=== PATIENT | male | born 1955 | race Caucasian/White ===

== ENCOUNTER 2016-11-20 16:58 | Emergency (ER) | payer OTHER ==
[~2016-11-20] VITALS: Ht 188 cm; Wt 99.0 kg
[2016-11-20 17:00] VITALS: BP 135/84; PULSE 92; RESP 16; TEMP 98.8; O2SAT 95
[2016-11-20 18:39] VITALS: BP 130/78; PULSE 76; RESP 18; TEMP 97.8; O2SAT 96
--- NOTE | 2016-11-20 18:58 | PD ---
HPI Chief Complaint: Psychiatric Symptoms Time Seen by Provider: 18:53 Travel History International Travel<30 days: No Contact w/Intl Traveler<30days: No Traveled to known affect area: No History of Present Illness HPI 60-year-old male that presents to the ED for evaluation of psychiatric illness. Patient states that he's been feeling depressed and that he has plans to hurt himself but he "is to much of a coward" to do it. Per patient his been feeling depressed secondary to unknown source. Per patient she feels like life is staying and stating that he has been staying the same house and is nonrigid. Patient also complains that he has not had a bowel movement for the past 6 days. He states passing gas. He does state having a history of hemorrhoids and she was told by the affairs that he will eventually require and a colonoscopy to get his rectum checked but he has not done so because of the necessity to put him under. He states that he is concerned that he might have an obstruction or mass effect aggravating his depression. He also states that he is feeling somewhat hard to concentrate which is unusual for him. He denies any headache. No blurry vision or double vision. Per patient she's had workups [place] the [place] recently for blood work which was negative. He did not had the constipation during that time. Per patient he To come out of work early because he wanted to get himself checked. On exam he appears to be very anxious. PFSH Past Medical History Medical History: Denies Significant Hx Social History Alcohol Use: No Tobacco Use: Yes Substance Use: No Allergies-Medications (Allergen,Severity, Reaction): Coded Allergies: No Known Allergies (Unverified , 11/20/16) Reported Meds & Prescriptions Reported Meds & Active Scripts Active Golytely 236 gm (Polyethylene Glycol/Electrolytes) 4,000 Ml Soln 4,000 Ml PO ONCE Miralax Powder (Polyethylene Glycol 3350 Powder) 17 Gm Powd 17 Gm PO DAILY Mix and dissolve one measuring cap-ful (17 grams) in water or juice. Reported Synthroid (Levothyroxine Sodium) 175 Mcg Tab 175 Mcg PO DAILY Review of Systems Except as stated in HPI: all other systems reviewed are Neg Physical Exam Narrative GENERAL: SKIN: Warm and dry. HEAD: Atraumatic. Normocephalic. EYES: Pupils equal and round. No scleral icterus. No injection or drainage. ENT: No nasal bleeding or discharge. Mucous membranes pink and moist. NECK: Trachea midline. No JVD. CARDIOVASCULAR: Regular rate and rhythm. RESPIRATORY: No accessory muscle use. Clear to auscultation. Breath sounds equal bilaterally. GASTROINTESTINAL: Abdomen soft, non-tender, nondistended. Hepatic and splenic margins not palpable. Rectal exam: No hemorrhoids or masses noted. Hemoccult was negative. Rectal exam showed no obvious hemorrhoid or mass, hemocult negative MUSCULOSKELETAL: Extremities without clubbing, cyanosis, or edema. No obvious deformities. Full range of motion of the upper and lower extremities bilaterally. 2+ pulses bilaterally. NEUROLOGICAL: Awake and alert. No obvious cranial nerve deficits. Motor grossly within normal limits. Five out of 5 muscle strength in the arms and legs. Normal speech. PSYCHIATRIC: Appropriate mood and affect; insight and judgment normal. Data Data Last Documented VS Vital Signs Date Time Temp Pulse Resp B/P Pulse Ox O2 Delivery O2 Flow Rate FiO2 11/20/16 18:39 97.8 76 18 130/78 96 Orders Diet Regular Basic (11/20/16 Dinner) Complete Blood Count With Diff (11/20/16 18:25) Comprehensive Metabolic Panel (11/20/16 18:25) Drug Screen, Random Urine (11/20/16 18:25) Alcohol (Ethanol) (11/20/16 18:25) Psych Screen (11/20/16 18:25) Ct Abd/Pel W Iv Contrast(Rout) (11/20/16 ) Ct Brain W/O Iv Contrast(Rout) (11/20/16 ) Iohexol 350 Inj (Omnipaque 350 Inj) (11/20/16 21:09) Labs Laboratory Tests Test 11/20/16 19:25 Sodium Level 143 MEQ/L Potassium Level 4.5 MEQ/L Chloride Level 109 MEQ/L Carbon Dioxide Level 30.7 MEQ/L Anion Gap 3 MEQ/L Blood Urea Nitrogen 18 MG/DL Creatinine 0.94 MG/DL Estimat Glomerular Filtration 82 ML/MIN Rate Random Glucose 88 MG/DL Calcium Level 8.8 MG/DL Total Bilirubin 0.3 MG/DL Aspartate Amino Transf 12 U/L (AST/SGOT) Alanine Aminotransferase 32 U/L (ALT/SGPT) Alkaline Phosphatase 65 U/L Total Protein 7.2 GM/DL Albumin 4.0 GM/DL Urine Opiates Screen NEG Urine Barbiturates Screen NEG Urine Amphetamines Screen NEG Urine Benzodiazepines Screen NEG Urine Cocaine Screen NEG Urine Cannabinoids Screen NEG Ethyl Alcohol Level LESS THAN 3 MG/DL MDM Medical Decision Making Medical Screen Exam Complete: Yes Emergency Medical Condition: Yes Medical Record Reviewed: Yes Interpretation(s) BMP Diagram 11/20/16 19:25 tox negative alcohol negative Last Impressions Head CT 11/20/16 0000 Signed Impressions: Service Date/Time: November 21:02 - CONCLUSION: Negative noncontrast head CT. Silver Eden MD Abdomen/Pelvis CT 11/20/16 0000 Signed Impressions: Service Date/Time: November 21:08 - CONCLUSION: 1. No acute abnormality demonstrated. 2. There is an indeterminate low density lesion of the liver, in the absence of known malignancy statistically is most likely benign. If attempted full characterization is desired clinically, an outpatient MRI of the abdomen with and without contrast can be done. 3. Bilateral peripelvic renal cysts. No hydronephrosis. Silver Eden MD Differential Diagnosis Constipation versus obstruction versus acute abdomen versus hemorrhoids versus depression versus suicidal ideation versus psychiatric Narrative Course 60-year-old male that presents to the ED for evaluation of possible constipation and psych history. Patient was properly examined and was found to have signs and symptoms which appear to be consistent with likely psychiatric illness. Patient also appears to have signs and symptoms consistent with constipation. Cannot rule out obstruction. I do not see any sign of acute disease by the recommend labs and imaging to rule out surgical emergency. He is agreeable with plan. Labs and imaging ordered. Labs and imaging showed no sign of acute disease other than a possible lesion to the liver of unclear importance. Recommendation is for nonemergent MRI. No sign of acute emergency. My recommendation at this time is for medical clearance for psychiatric evaluation. Patient was medically cleared. Okay to be seen by psych. Mental health screening was discussed with the patient. [facility] Point of Care Internal Pos. & Neg. Controls: Passed Fecal Specimen Occult Blood: Negative Diagnosis Primary Impression: Suicidal ideation Additional Impression: Constipation Qualified Code: K59.00 - Constipation, unspecified constipation type Patient Instructions: General Instructions Additional Instructions: CT of the abdomen did not show any sign of obstruction bleeding to have a very slight lesion that appears to be benign on your liver. [facility] evaluation and recheck of lesion on liver. Take miralax every day and drink plenty of fluids. Take Golytely only if severely constipated and miralax not working at all. See ED if worst. Med/Other Pt SpecificInfo: Prescription(s) given Scripts Peg-Electrolytes (Golytely 236 gm)4,000 Ml Soln4,000 Ml PO ONCE #1 CONTAINER Ref 0 Prov:Liset Johnson MD 11/20/16 Polyethylene Glycol 3350 Powder (Miralax Powder)17 Gm Powd17 Gm PO DAILY #1 BOTTLE Ref 0 Mix and dissolve one measuring cap-ful (17 grams) in water or juice. Prov:Liset Johnson MD 11/20/16 Disposition: 01 DISCHARGE HOME Condition: Stable Marvin Purcell Nov 20, 2016 18:57
[2016-11-20] MEDS ORDERED: SYNT175T PO (20:02)
[2016-11-20 20:08] LABS: AMPHETAMINE, URINE NEG (NEG); BARBITURATES, URINE NEG (NEG); COCAINE, URINE NEG (NEG)
[2016-11-20 20:44] LABS: ANION GAP 3 MEQ/L (5-15)
[2016-11-20 20:47] LABS: ALKALINE PHOSPHATASE 65 U/L (45-117); ALT (GPT) 32 U/L (12-78); AST (GOT) 12 U/L (15-37); BICARBONATE 30.7 MEQ/L (21.0-32.0); BLOOD UREA NITROGEN 18 MG/DL (7-18); CHLORIDE 109 MEQ/L (98-107); GLOMERULAR FILTRATION RATE 82 ML/MIN (>89); POTASSIUM 4.5 MEQ/L (3.5-5.1); SODIUM (NA) 143 MEQ/L (136-145); TOTAL BILIRUBIN ADULT 0.3 MG/DL (0.2-1.0)
[2016-11-20] MEDS ORDERED: IOHEXOL 350 MG/ML 10 ML VIAL (for RAD DIAG) IV ONE (21:09)
--- NOTE | 2016-11-20 21:17 | RADRPT ---
EXAM DATE/TIME: 11/20/2016 21:02 [facility] COMPARISON: No previous studies available for comparison. INDICATIONS : Blurred vision. RADIATION DOSE: 62.00 CTDIvol (mGy) MEDICAL HISTORY : Hypertension. Thyroid cancer. SURGICAL HISTORY : Thyroidectomy. ENCOUNTER: Initial ACUITY: 1 day PAIN SCALE: 0/10 LOCATION: cranial TECHNIQUE: Multiple contiguous axial images were obtained of the head. Using automated exposure control and adj ustment of the mA and/or kV according to patient size, radiation dose was kept as low as reasonably a chievable to obtain optimal diagnostic quality images. FINDINGS: CEREBRUM: The ventricles are normal for age. No evidence of midline shift, mass lesion, hemorrhage or acute in farction. No extra-axial fluid collections are seen. POSTERIOR FOSSA: The cerebellum and brainstem are intact. The 4th ventricle is midline. The cerebellopontine angle i s unremarkable. EXTRACRANIAL: The visualized portion of the orbits is intact. SKULL: The calvaria is intact. No evidence of skull fracture. CONCLUSION: Negative noncontrast head CT. Silver Eden MD on November 20, 2016 at 21:15 Board Certified Radiologist. This report was verified electronically.
--- NOTE | 2016-11-20 21:34 | RADRPT ---
EXAM DATE/TIME: 11/20/2016 21:08 [facility] COMPARISON: No previous studies available for comparison. INDICATIONS : Constipation with abdominal distension. IV CONTRAST: 97 cc Omnipaque 350 (iohexol) IV ORAL CONTRAST: No oral contrast ingested. RADIATION DOSE: 11.25 CTDIvol (mGy) MEDICAL HISTORY : Hypertension. Thyroid cancer. SURGICAL HISTORY : Thyroidectomy. ENCOUNTER: Initial ACUITY: 2 weeks PAIN SCALE: 5/10 LOCATION: Abdomen/pelvis TECHNIQUE: Volumetric scanning of the abdomen and pelvis was performed. Using automated exposure control and ad justment of the mA and/or kV according to patient size, radiation dose was kept as low as reasonably achievable to obtain optimal diagnostic quality images. FINDINGS: LOWER LUNGS: The visualized lower lungs are clear. LIVER: 2.7 cm low attenuation lesion seen posterior segment of the right hepatic lobe. SPLEEN: Normal size without lesion. PANCREAS: Within normal limits. KIDNEYS: There are bilateral benign-appearing renal cysts that measure up to 1 cm on the right and up to 3 cm on the left. Most of the cysts are peripelvic. No hydronephrosis demonstrated. ADRENAL GLANDS: Within normal limits. VASCULAR: There is no aortic aneurysm. BOWEL/MESENTERY: No obstruction or acute inflammatory changes. No free fluid demonstrated. ABDOMINAL WALL: Within normal limits. RETROPERITONEUM: There is no lymphadenopathy. BLADDER: No wall thickening or mass. REPRODUCTIVE: Within normal limits. INGUINAL: There is no lymphadenopathy or hernia. MUSCULOSKELETAL: No acute bony abnormality demonstrated. There are degenerative changes of the lower lumbar spine. CONCLUSION: 1. No acute abnormality demonstrated. 2. There is an indeterminate low density lesion of the liver, in the absence of known malignancy stat istically is most likely benign. If attempted full characterization is desired clinically, an outpati ent MRI of the abdomen with and without contrast can be done. 3. Bilateral peripelvic renal cysts. No hydronephrosis. Silver Eden MD on November 20, 2016 at 21:28 Board Certified Radiologist. This report was verified electronically.
[2016-11-20] MEDS ORDERED: MIRA33504 PO (21:42)
[2016-11-20] MEDS ORDERED: COLY4000S PO (21:42)
== END 2016-11-21 00:15 | disposition home or self-care (01) ==
LOC: NEPJ 16:58 → NEPA 11-21 00:15
DX: R45.851 Suicidal ideations (principal); K59.00 Constipation, unspecified; K76.9 Liver disease, unspecified; I10 Essential (primary) hypertension; N28.1 Cyst of kidney, acquired; Z72.0 Tobacco use
CPT/HCPCS: 70450; 74177; 80053; 80307; 80320; 99284; Q9967

== ENCOUNTER 2017-04-21 14:56 | Inpatient (IN) | payer OTHER ==
[~2017-04-21] VITALS: Ht 188 cm; Wt 96.1 kg
[~2017-04-21 14:56] MED LIST: COLY4000S PO; MIRA33504 PO; SYNT175T PO
--- NOTE | 2017-04-21 16:02 | PD ---
HPI Chief Complaint: psychiatric symptoms Time Seen by Provider: 16:00 Travel History International Travel<30 days: No Contact w/Intl Traveler<30days: No History of Present Illness HPI 61-year-old male presents to the ED under Domingo act from [facility] the [place] for psychiatric evaluation. Per the Domingo act paper work the patient endorses suicidal ideation and plan to use "hunting rifle"that he has at home. The Domingo act paper work states that the is scared to go home as he feels he will not be able to keep himself safe. He states that he feels that no one will able to help him and he is "going to end it so I will not have to endure the future." On presentation the patient endorses making these statements but he DENIES SUICIDAL IDEATION. He also endorses owning a gun. He endorses psychiatric diagnosis of major depressive disorder and anxiety. He denies previous suicide attempts or previous psychiatric hospitalization. He complains of chronic no back pain, no worse today than usual. Denies other somatic complaints. Denies chronic alcohol or illicit drug use. PFSH Past Medical History Diabetes: No Diminished Hearing: No Hypertension: Yes Seizures: No Past Surgical History Other Surgery: Yes (THYROIDECTOMY-CANCER 30 YRS AGO) Social History Alcohol Use: No Tobacco Use: Yes Substance Use: No Allergies-Medications (Allergen,Severity, Reaction): Coded Allergies: No Known Allergies (Unverified , 04/21/17) Reported Meds & Prescriptions Reported Meds & Active Scripts Active Reported Synthroid (Levothyroxine Sodium) 175 Mcg Tab 175 Mcg PO DAILY Review of Systems Except as stated in HPI: all other systems reviewed are Neg Physical Exam Narrative GENERAL: Well-nourished, well-developed white male in no acute distress. PSYCHIATRIC: No delusional thought processes. No hallucinations. Strange affect. SKIN: Focused skin assessment warm/dry. HEAD: Normocephalic. EYES: No scleral icterus. No injection or drainage. NECK: Supple, trachea midline. No JVD or lymphadenopathy. CARDIOVASCULAR: Regular rate and rhythm without murmurs, gallops, or rubs. RESPIRATORY: Breath sounds clear and equal bilaterally. No accessory muscle use. GASTROINTESTINAL: Abdomen soft, non-tender, nondistended. Active bowel sounds. MUSCULOSKELETAL: No cyanosis, or edema. Ambulatory with a normal gait. Moves extremities spontaneously. BACK: Nontender without obvious deformity. No CVA tenderness. Data Data Last Documented VS Vital Signs Date Time Temp Pulse Resp B/P Pulse Ox O2 Delivery O2 Flow Rate FiO2 04/21/17 16:24 99.6 76 16 139/86 98 Room Air Orders Complete Blood Count With Diff (04/21/17 15:57) Comprehensive Metabolic Panel (04/21/17 15:57) Urinalysis - C+S If Indicated (04/21/17 15:57) Psych Screen (04/21/17 15:57) Drug Screen, Random Urine (04/21/17 15:57) Alcohol (Ethanol) (04/21/17 15:57) Diet Heart Healthy (04/21/17 Dinner) Admit Order (Ed Use Only) (04/21/17 17:39) Labs Laboratory Tests Test 04/21/17 16:16 White Blood Count 5.8 TH/MM3 Red Blood Count 5.23 MIL/MM3 Hemoglobin 15.2 GM/DL Hematocrit 45.0 % Mean Corpuscular Volume 85.9 FL Mean Corpuscular Hemoglobin 29.1 PG Mean Corpuscular Hemoglobin 33.9 % Concent Red Cell Distribution Width 13.1 % Platelet Count 198 TH/MM3 Mean Platelet Volume 10.2 FL Neutrophils (%) (Auto) 65.1 % Lymphocytes (%) (Auto) 23.3 % Monocytes (%) (Auto) 10.2 % Eosinophils (%) (Auto) 0.9 % Basophils (%) (Auto) 0.5 % Neutrophils # (Auto) 3.8 TH/MM3 Lymphocytes # (Auto) 1.3 TH/MM3 Monocytes # (Auto) 0.6 TH/MM3 Eosinophils # (Auto) 0.1 TH/MM3 Basophils # (Auto) 0.0 TH/MM3 CBC Comment DIFF FINAL Differential Comment Urine Color YELLOW Urine Turbidity CLEAR Urine pH 5.0 Urine Specific [place] 1.024 Urine Protein NEG mg/dL Urine Glucose (UA) NEG mg/dL Urine Ketones NEG mg/dL Urine Occult Blood NEG Urine Nitrite NEG Urine Bilirubin NEG Urine Urobilinogen LESS THAN 2.0 MG/DL Urine Leukocyte Esterase NEG Urine RBC LESS THAN 1 /hpf Urine WBC 1 /hpf Urine Mucus FEW /lpf Urine Sperm RARE Microscopic Urinalysis Comment CULT NOT INDICATED Sodium Level 144 MEQ/L Potassium Level 4.0 MEQ/L Chloride Level 110 MEQ/L Carbon Dioxide Level 28.3 MEQ/L Anion Gap 6 MEQ/L Blood Urea Nitrogen 16 MG/DL Creatinine 0.83 MG/DL Estimat Glomerular Filtration 94 ML/MIN Rate Random Glucose 90 MG/DL Calcium Level 9.3 MG/DL Total Bilirubin 0.2 MG/DL Aspartate Amino Transf 19 U/L (AST/SGOT) Alanine Aminotransferase 40 U/L (ALT/SGPT) Alkaline Phosphatase 67 U/L Total Protein 7.5 GM/DL Albumin 3.9 GM/DL Urine Opiates Screen NEG Urine Barbiturates Screen NEG Urine Amphetamines Screen NEG Urine Benzodiazepines Screen NEG Urine Cocaine Screen NEG Urine Cannabinoids Screen NEG Ethyl Alcohol Level LESS THAN 3 MG/DL MDM Medical Decision Making Medical Screen Exam Complete: Yes Emergency Medical Condition: Yes Differential Diagnosis Adjustment disorder versus anxiety versus bipolar versus depression versus dementia versus electrolyte disorder versus malingering versus mood disorder versus ODD versus psychosis versus PTSD versus schizophrenia versus schizoaffective disorder versus substance-induced mood disorder versus other Narrative Course 61-year-old male presents to the ED under Domingo act from [facility] [place] for psychiatric evaluation. Per the Domingo act paper work the patient endorses suicidal ideation and plan to use "hunting rifle"that he has at home. The Domingo act paper work states that the is scared to go home as he feels he will not be able to keep himself safe. He states that he feels that no one will able to help him and he is "going to end it so I will not have to endure the future." On presentation the patient endorses making these statements but he DENIES SUICIDAL IDEATION. He also endorses owning a gun. He endorses psychiatric diagnosis of major depressive disorder and anxiety. He denies previous suicide attempts or previous psychiatric hospitalization. He complains of chronic no back pain, no worse today than usual. Denies other somatic complaints. Denies chronic alcohol or illicit drug use. Vitals reviewed. Physical exam unremarkable. No concerning abnormalities of the CBC, CMP, UA. Tox screen negative. Alcohol less than 3. This patient is medically cleared for psychiatric evaluation. Please see psych notes for disposition. Diagnosis Primary Impression: Medical clearance for psychiatric admission Additional Impression: Suicidal ideation Anupama Velasquez Apr 21, 2017 16:01
[2017-04-21 16:24] VITALS: BP 139/86; PULSE 76; RESP 16; TEMP 99.6; O2SAT 98
[2017-04-21 16:41] LABS: AUTOMATED NEUTROPHIL # 3.8 TH/MM3 (1.8-7.7); BASOPHIL % 0.5 % (0.0-2.0); EOSINOPHIL # 0.1 TH/MM3 (0-0.4); EOSINOPHIL % 0.9 % (0.0-4.0); HEMO FLAGS DIFF FINAL; LYMPH % 23.3 % (9.0-44.0); LYMPHOCYTE # 1.3 TH/MM3 (1.0-4.8); MEAN CELL VOLUME 85.9 FL (80.0-100.0); MEAN CORPUSCULAR HEMOGLOBIN 29.1 PG (27.0-34.0); MEAN CORPUSCULAR HGB CONC 33.9 % (32.0-36.0); MONO % 10.2 % (0.0-8.0); NEUT % 65.1 % (16.0-70.0); PLATELET COUNT 198 TH/MM3 (150-450); RED BLOOD COUNT 5.23 MIL/MM3 (4.50-5.90); RED CELL DISTRIBUTION WIDTH 13.1 % (11.6-17.2); WHITE BLOOD COUNT 5.8 TH/MM3 (4.0-11.0)
[2017-04-21 17:01] LABS: ALT (GPT) 40 U/L (12-78); ANION GAP 6 MEQ/L (5-15); AST (GOT) 19 U/L (15-37); BICARBONATE 28.3 MEQ/L (21.0-32.0); BLOOD UREA NITROGEN 16 MG/DL (7-18); CHLORIDE 110 MEQ/L (98-107); GLOMERULAR FILTRATION RATE 94 ML/MIN (>89); SODIUM (NA) 144 MEQ/L (136-145)
[2017-04-21 17:04] LABS: ALKALINE PHOSPHATASE 67 U/L (45-117); TOTAL BILIRUBIN ADULT 0.2 MG/DL (0.2-1.0)
[2017-04-21 17:10] LABS: BLOOD, URINE NEG (NEG); COMMENT (UR) CULT NOT INDICATED; CULTURE IF INDICATED CULT NOT INDICATED; GLUCOSE,URINE NEG (NEG); KETONE, URINE NEG (NEG); MUCUS URINE FEW /lpf (OCC); NITRITE,URINE NEG (NEG); URINE COLOR YELLOW (YELLW/STRAW)
[2017-04-21 17:11] LABS: AMPHETAMINE, URINE NEG (NEG); BARBITURATES, URINE NEG (NEG); COCAINE, URINE NEG (NEG)
[2017-04-21] MEDS ORDERED: LORazepam 1 MG TAB PO PRN (17:45)
[2017-04-21] MEDS ORDERED: MAGNESIUM HYDROXIDE SUSP 30 ML CUP PO PRN (17:45)
[2017-04-21] MEDS ORDERED: ACETAMINOPHEN 325 MG TAB PO PRN (17:45)
[2017-04-21] MEDS ORDERED: LORazepam 2 MG/ML VIAL IM PRN ×2 (17:45)
[2017-04-21] MEDS ORDERED: ALUMINUM/MAGNESIUM/SIMETH 30 ML CUP PO PRN (17:45)
[2017-04-21] MEDS ORDERED: LORazepam 0.5 MG TAB PO PRN (17:45)
--- NOTE | 2017-04-21 17:56 | HHI.HP ---
Provisional Diagnosis Admission Date [place] I. Adjustment disorder with mixed disturbance of emotion and conduct. Certification of Person's Competence To Provide Express and Informed Consent I have personally examined Santana Spears , a person being served at [facility] on, Apr 21, 2017 17:44. Express and informed consent means consent voluntarily given in writing, by a competent person, after sufficient explanation and disclosure of the subject matter involved to enable the person to make a knowing and willful decision without any element of force, fraud, deceit, duress, or other form of constraint or coercion. This person is 18 years of age or older, is not now known to be incompetent to consent to treatment with a guardian advocate, and does not have a health care surrogate or proxy currently making medical treatment decisions. I have found this person to be one of the following: [X] Competent to provide express and informed consent, as defined above, for voluntary admission to this facility and is competent to provide express and informed consent for treatment. He/she has the consistent capacity to make well reasoned, willful, and knowing decisions concerning his or her medical or mental health treatment. The person fully and consistently understands the purpose of the admission for examination/placement and is fully capable of personally exercising all rights assured under [place] [] Incompetent to provide express and informed consent to voluntary admission, and this is incompetent to provide express and informed consent to treatment. The person must be transferred to involuntary status and a petition for a guardian advocate filed with the Circuit Court. [] Refusing to provide express and informed consent to voluntary admission but is competent to provide express and informed consent for treatment. The person must be discharged or transferred to involuntary status. Form shall be completed within 24 hours of a person's arrival at the receiving facility and filed in the clinical record of each person: 1. Admitted on a voluntary basis 2. Permitted to provide express and informed consent to his/her own treatment 3. Allowed to transfer from involuntary to voluntary status 4. Prior to permitting a person to consent to his or her own treatment after having been previously found incompetent to consent to treatment. History of Present Illness Capacity: Has Capacity HPI This is a 61-year-old male who was rock to the emergency department under a Domingo act written by a licensed clinical social secretary at the local [place] clinic. According to the Domingo act, the patient has suicidal ideation with a plan to use a "hunting rifle" he has at home. According to the Domingo act the patient is "scared to go home" as he reportedly feels he will be unable to keep himself safe. He also told the social secretary no one is going to be able to help him and he has to "end it so he won't have to endure the future". The patient appears to have many traits of autism spectrum disorder, particularly Asperger's type. He admits to making these remarks but does not appear to see the correlation between the statements and his own dangerousness to self. His answer when confronted with these remarks is that he should keep his mouth shut in the future. He admits he was at this hospital in November for making similar comments and again states to this physician that he should have kept his mouth shut. Patient does have multiple stressors in his life and little support system. He has 1 sibling that is significantly autistic. He has another sibling that lives [place] and cannot be helpful to him. Both his parents are . He lost his job approximately 9 months ago. He has attempted to work at 2 different jobs for 2 weeks at each, but not been successful. He has financial difficulty at this time. He endorses symptoms of depressed mood, anhedonia, anxiety, insomnia, and suicidal thinking. The symptoms have been going on for the last several months and increasing in severity. Review of Systems Except as stated in HPI: all other systems reviewed are Neg Past Psych History Psychological trauma history Has not Completely gotten over the of his father, which happened over 10 years ago. Violence risk - others (6 mos) Minimal Violence risk - self (6 mos) Moderate to severe Substance Abuse History Drugs/Alcohol past 12 months Denied Past Family Social History Coded Allergies: No Known Allergies (Unverified , 04/21/17) Reported Medications Levothyroxine (Synthroid)175 Mcg Oab212 Mcg PO DAILY #30 TAB Ref 0 11/20/16 Discontinued Scripts Peg-Electrolytes (Golytely 236 gm)4,000 Ml Soln4,000 Ml PO ONCE #1 CONTAINER Ref 0 Prov:Liset Johnson MD 11/20/16 Family History Positive for autism spectrum disorders. Social History Had a career in the . Had a career in the [employer] business. Currently unemployed. Has financial difficulty. Does not use alcohol or drugs. Does have a hunting rifle at home. Minimal to no family support. Patient's Strengths (min. 2) Verbal and has access to healthcare. Physical Exam GENERAL: SKIN: Warm and dry. HEAD: Normocephalic. EYES: No scleral icterus. No injection or drainage. NECK: Supple, trachea midline. No JVD or lymphadenopathy. CARDIOVASCULAR: Regular rate and rhythm without murmurs, gallops, or rubs. RESPIRATORY: Breath sounds equal bilaterally. No accessory muscle use. GASTROINTESTINAL: Abdomen soft, non-tender, nondistended. MUSCULOSKELETAL: No cyanosis, or edema. BACK: Nontender without obvious deformity. No CVA tenderness. Vital Signs Vital Signs Date Time Temp Pulse Resp B/P Pulse Ox O2 Delivery O2 Flow Rate FiO2 04/21/17 16:24 99.6 76 16 139/86 98 Room Air Mental Status Examination Speech: Unremarkable Orientation: x3 Memory: Unremarkable Thought Process: Organized, Goal Directed Thought Content: Bizarre thinking Hallucination Type: None Attention and Concentration: Good Suicidal Ideation: Yes Previous Suicide Attempts: No Homicidal Ideation: No Previous Homicide Attempts: No Insight: Fair Judgment: Unrealistic Affect: Anxious Mood: Appropriate Motor Activity: Normal gait Assessment & Plan Problem List: (1) Adjustment disorder with mixed disturbance of emotions and conduct ICD Code: F43.25 (2) Autism spectrum disorder ICD Code: F84.0 Assessment & Plan Estimated LOS: days this is a 61-year-old male with a history of service and 16 years in the [employer] business, lost his job last year and is now making significant suicidal remarks, with a plan to shoot himself, and a hunting rifle at home. He has also indicated a desire to "end it all". While the patient is currently trying to recant his comments, this physician feels he is at great risk for self-harm. He has no job and he is financially strapped. He has limited to no support system from family members. He has limited to no friends to support him. This physician will admit the patient for evaluation and stabilization. He presents with symptoms of depression and anxiety which can respond to antidepressant medication and mood stabilizing medication. He will be getting a CBC and comprehensive metabolic panel to ensure there is no infectious or metabolic process that is aggravating his current depressive and suicidal symptoms. His thyroid stimulating hormone will be checked for thyroid disease which may also adversely impact his mood. He will receive an EKG to make sure his cardiac conduction is adequate to tolerate mood stabilizing medicines and antidepressant medicines. Vitamin B-12 and vitamin D will also be checked to ensure he does not suffer from vitamin deficiency contributing to his thought or emotional issues. This physician spoke with the patient's nurse regarding his behavior and the nurses also very concerned about his safety. This physician will contact the clinical partner to obtain further records from the [facility]. Xu Rodriguez MD Apr 21, 2017 17:56
[2017-04-21 18:10] VITALS: BP 148/88; PULSE 68; RESP 18; TEMP 97.8; O2SAT 100
[2017-04-22 06:03] VITALS: BP 152/78; PULSE 69; RESP 18; TEMP 98.1; O2SAT 96
[2017-04-22 08:55] LABS: AUTOMATED NEUTROPHIL # 5.1 TH/MM3 (1.8-7.7); BASOPHIL % 0.4 % (0.0-2.0); EOSINOPHIL % 0.7 % (0.0-4.0); HEMATOCRIT 48.7 % (39.0-51.0); HEMO FLAGS DIFF FINAL; LYMPH % 17.7 % (9.0-44.0); LYMPHOCYTE # 1.2 TH/MM3 (1.0-4.8); MEAN CELL VOLUME 86.2 FL (80.0-100.0); MEAN CORPUSCULAR HEMOGLOBIN 28.9 PG (27.0-34.0); MEAN CORPUSCULAR HGB CONC 33.5 % (32.0-36.0); MONO % 7.9 % (0.0-8.0); NEUT % 73.3 % (16.0-70.0); PLATELET COUNT 214 TH/MM3 (150-450); RED BLOOD COUNT 5.66 MIL/MM3 (4.50-5.90); RED CELL DISTRIBUTION WIDTH 13.2 % (11.6-17.2)
[2017-04-22 09:16] LABS: ANION GAP 11 MEQ/L (5-15); AST (GOT) 14 U/L (15-37); BICARBONATE 26.4 MEQ/L (21.0-32.0); BLOOD UREA NITROGEN 14 MG/DL (7-18); CHLORIDE 107 MEQ/L (98-107); GLOMERULAR FILTRATION RATE 109 ML/MIN (>89); POTASSIUM 3.7 MEQ/L (3.5-5.1); SODIUM (NA) 144 MEQ/L (136-145)
[2017-04-22 09:43] LABS: ALKALINE PHOSPHATASE 69 U/L (45-117); ALT (GPT) 38 U/L (12-78); HDL CHOLESTEROL 55.8 MG/DL (40.0-60.0); LDL CHOLESTEROL 138 MG/DL (0-99); TOTAL BILIRUBIN ADULT 0.6 MG/DL (0.2-1.0)
--- NOTE | 2017-04-22 11:56 | EKG ---
Date Performed: 04/22/2017 Time Performed: 10:03:09 PTAGE: 61 years EKG: Sinus rhythm NORMAL ECG NO PREVIOUS TRACING DOCTOR: Ramon Castillo Interpretating Date/Time 04/22/2017 11:53:59
--- NOTE | 2017-04-22 12:27 | HHI.DS ---
Psychiatry Discharge Summary Inpatient Psychiatric care?: Yes Advance Directive: No Reason Not Provided: refused Mental Health AdvanceDirective: No Health Care Proxy: No Admission Admission Date Apr 21, 2017 at 17:41 Admission Diagnosis: (1) Adjustment disorder with mixed disturbance of emotions and conduct ICD Code: F43.25 Brief History This is a 61-year-old male who was rock to the emergency department under a Domingo act written by a licensed clinical youth support worker at the local [place] clinic. According to the Domingo act, the patient has suicidal ideation with a plan to use a "hunting rifle" he has at home. According to the Domingo act the patient is "scared to go home" as he reportedly feels he will be unable to keep himself safe. He also told the youth support worker no one is going to be able to help him and he has to "end it so he won't have to endure the future". The patient appears to have many traits of autism spectrum disorder, particularly Asperger's type. He admits to making these remarks but does not appear to see the correlation between the statements and his own dangerousness to self. His answer when confronted with these remarks is that he should keep his mouth shut in the future. He admits he was at this hospital in November for making similar comments and again states to this physician that he should have kept his mouth shut. Patient does have multiple stressors in his life and little support system. He has 1 sibling that is significantly autistic. He has another sibling that lives out west and cannot be helpful to him. Both his parents are . He lost his job approximately 9 months ago. He has attempted to work at 2 different jobs for 2 weeks at each, but not been successful. He has financial difficulty at this time. He endorses symptoms of depressed mood, anhedonia, anxiety, insomnia, and suicidal thinking. The symptoms have been going on for the last several months and increasing in severity. Tobacco Use In Past 30 Days: No Tobacco Past 30 Days Alcohol Use: Never Hospital Course Patient seen by me today with nurse Darryl. Patient alert oriented calm cooperative denying suicidality homicidality voices or visions. 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 Is a he does have benefits of the [place] clinic here in town. He does see a counselor weekly. He is consistent with his denial of suicidality with me and with other staff. He is able contracted to no harm. Distant patient does not meet Domingo act criteria I will lift the Domingo act. Patient to be discharged to himself. No Rx by me. He may continue his own home scheduled medications. Strong recommendation that you request a psychiatric assessment at his next visit with his counselor. Patient may benefit from a trial of antidepressant Results Blood Pressure 152 / 78 Vital Signs Date Time Temp Pulse Resp B/P Pulse Ox O2 Delivery O2 Flow Rate FiO2 04/22/17 06:03 98.1 69 18 152/78 96 04/21/17 16:24 Room Air Laboratory Tests Test 04/21/17 04/22/17 16:16 07:47 Monocytes (%) (Auto) 10.2 % (0.0-8.0) Urine Mucus FEW /lpf (OCC) Urine Sperm RARE (NONE) Chloride Level 110 MEQ/L (98-107) Neutrophils (%) (Auto) 73.3 % (16.0-70.0) Aspartate Amino Transf 14 U/L (15-37) (AST/SGOT) Cholesterol Level 218 MG/DL (120-200) LDL Cholesterol 138 MG/DL (0-99) 25-Hydroxy Vitamin D Total 22.8 ng/ML (30-100) Thyroid Stimulating Hormone 0.016 uIU/ML 3rd Gen (0.358-3.740) Laboratory Results Test 04/22/17 07:47 Triglycerides Level 122 MG/DL (42-150) Cholesterol Level 218 MG/DL (120-200) LDL Cholesterol 138 MG/DL (0-99) HDL Cholesterol 55.8 MG/DL (40.0-60.0) Summary of Procedures None done Pending results at discharge: No Medications # of Antipsychotic meds at D/C: 0 Approp Antipsych med options 1 - Minimum of three failed multiple trials of monotherapy. 2 - Documented plan to taper to monotherapy due to previous use of multiple meds OR cross-taper in progress at D/C. 3 - Documentation of augmentation of Clozapine. 4 - Justification other than those listed in allowable values 1-3, document here : Discharge Discharge Date: Apr 22, 2017 Discharge Diagnosis: (1) Adjustment disorder with mixed disturbance of emotions and conduct Diagnosis: Principal ICD Code: F43.25 Mental Status Exam at Disch Alert oriented white male, he is normally active, he is euthymic with slight decreased range intensity is affect. Speech rate and rhythm are within normal limits though no formal thought disorders. No auditory or visual hallucinations. No delusions. Insight and judgment is poor to fair. Cognition grossly intact Pt Condition on Discharge: Stable Discharge Disposition: Discharge Home Discharge Instructions Diet Instructions: As Tolerated, No Restrictions Activities you can perform: Regular-No Restrictions Scheduled Appointment: Discharge Time <= 30 minutes Discharge/Advance Care Plan Health Problems: (1) Adjustment disorder with mixed disturbance of emotions and conduct (2) Autism spectrum disorder Goals to promote your health * To prevent worsening of your condition and complications * To maintain your health at the optimal level Directions to meet your goals Take your medications as prescribed Follow your dietary instruction Follow activity as directed Keep your appointments as scheduled Take your immunizations and boosters as scheduled If your symptoms worsen call your PCP, if no PCP go to Urgent Care Center or Emergency Room For 25/05 questions related to your inpatient stay or results of tests pending at discharge, please contact Dr. Silver Saha at Smoking is Dangerous to Your Health. Avoid second hand smoking Silver Saha MD Apr 22, 2017 12:27
--- NOTE | 2017-04-22 15:02 | PD.CONS ---
HPI Service [facility] Hospitalists Consult Requested By Psychiatry team Reason for Consult Back pain Primary Care Physician [facility] Diagnoses: History of Present Illness Written by Harvinder Ivey, acting as scribe for Dr. Choi on 04/22/17 at 14: 52. Patient is a 61-year-old male with primary medical history of depression, thyroid cancer, chronic back pain who came into the hospital as a Domingo act after a social work manager at the [place] sent to patient for psychiatric evaluation. As per record, PLUQ act paper states that patient endorses suicidal ideation and plan to use "hunting rifle' that was at his home. He is now admitted to inpatient psychiatry unit for further evaluation. Consulted for medical management for back pain. Patient seen and examined today. Reports he has chronic back pain but not on any narcotic medications. 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 He left the job in July and is now looking for another job. Patient states that he was at the [place] to be checked for his back pain and he was being asked about if he wanted to hurt himself and he answered "if you want to hurt myself I will use my rifle." She never thought that that statement would trigger for him to be admitted to the psychiatric unit. States that he wanted to get today requesting to get out onto unit to look for jobs because he was out of major job since July last year. Patient extensively talks about him being in the [place] [employer] when he was younger and have missed opportunity to continue to be in the [employer] carrier. Denies SOB/ dyspnea. Denies chest pain, palpitations, headaches, dizziness. Denies fevers, chills, n/v/d. Denies hematuria, dysuria. Review of Systems Except as stated in HPI: all other systems reviewed are Neg Past Family Social History Allergies: Coded Allergies: No Known Allergies (Unverified , 04/21/17) Past Medical History Chronic back pain Depression Thyroid cancer with thyroid surgery Past Surgical History Thyroidectomy Reported Medications Reported Meds & Active Scripts Active Reported Synthroid (Levothyroxine Sodium) 175 Mcg Tab 175 Mcg PO DAILY Active Ordered Medications Current Medications Medications (Trade) Dose Ordered Sig/Leonardo Route Start Time Stop Time Status Last Admin (Ativan) 1 mg Q6H PRN PO 04/21/17 17:45 (Ativan Inj) 1 mg Q6H PRN IM 04/21/17 17:45 (Tylenol) 650 mg Q4H PRN PO 04/21/17 17:45 (Milk Of Magnesia Liq) 30 ml DAILY PRN PO 04/21/17 17:45 (Mag-Al Plus Susp Liq) 30 ml Q6H PRN PO 04/21/17 17:45 Family History Mom has skin cancer, melanoma Social History 1-2 per week alcohol use Denies tobacco use Denies illicit drug use Physical Exam Vital Signs Vital Signs Date Time Temp Pulse Resp B/P Pulse Ox O2 Delivery O2 Flow Rate FiO2 04/22/17 06:03 98.1 69 18 152/78 96 04/21/17 18:10 97.8 68 18 148/88 100 04/21/17 16:24 99.6 76 16 139/86 98 Room Air Physical Exam GENERAL: This is a well-nourished, well-developed patient, in no apparent distress. SKIN: No rashes, ecchymoses or lesions. Cool and dry. HEAD: Atraumatic. Normocephalic. No temporal or scalp tenderness. EYES: Pupils equal round and reactive. Extraocular motions intact. No scleral icterus. No injection or drainage. ENT: Nose without bleeding. Throat without erythema. Uvula midline. Airway patent. NECK: Trachea midline. No JVD or lymphadenopathy. CARDIOVASCULAR: Regular rate and rhythm without murmurs, gallops, or rubs. RESPIRATORY: Clear to auscultation. Breath sounds equal bilaterally. No wheezes , rales, or rhonchi. GASTROINTESTINAL: Abdomen soft, non-tender, nondistended. Bowel sounds active 4. MUSCULOSKELETAL: Extremities without clubbing, cyanosis, or edema. Mild tenderness to lower back deep palpation. NEUROLOGICAL: Awake and alert. No focal neuro deficit. Motor and sensory grossly within normal limits. Five out of 5 muscle strength in all muscle groups. Normal speech. Laboratory Laboratory Tests Test 04/21/17 04/22/17 16:16 07:47 White Blood Count 5.8 7.0 Red Blood Count 5.23 5.66 Hemoglobin 15.2 16.3 Hematocrit 45.0 48.7 Mean Corpuscular Volume 85.9 86.2 Mean Corpuscular Hemoglobin 29.1 28.9 Mean Corpuscular Hemoglobin 33.9 33.5 Concent Red Cell Distribution Width 13.1 13.2 Platelet Count 198 214 Mean Platelet Volume 10.2 10.6 Neutrophils (%) (Auto) 65.1 73.3 Lymphocytes (%) (Auto) 23.3 17.7 Monocytes (%) (Auto) 10.2 7.9 Eosinophils (%) (Auto) 0.9 0.7 Basophils (%) (Auto) 0.5 0.4 Neutrophils # (Auto) 3.8 5.1 Lymphocytes # (Auto) 1.3 1.2 Monocytes # (Auto) 0.6 0.5 Eosinophils # (Auto) 0.1 0.0 Basophils # (Auto) 0.0 0.0 CBC Comment DIFF FINAL DIFF FINAL Differential Comment Urine Color YELLOW Urine Turbidity CLEAR Urine pH 5.0 Urine Specific [place] 1.024 Urine Protein NEG Urine Glucose (UA) NEG Urine Ketones NEG Urine Occult Blood NEG Urine Nitrite NEG Urine Bilirubin NEG Urine Urobilinogen LESS THAN 2.0 Urine Leukocyte Esterase NEG Urine RBC LESS THAN 1 Urine WBC 1 Urine Mucus FEW Urine Sperm RARE Microscopic Urinalysis Comment CULT NOT INDICATED Sodium Level 144 144 Potassium Level 4.0 3.7 Chloride Level 110 107 Carbon Dioxide Level 28.3 26.4 Anion Gap 6 11 Blood Urea Nitrogen 16 14 Creatinine 0.83 0.73 Estimat Glomerular Filtration 94 109 Rate Random Glucose 90 87 Calcium Level 9.3 9.0 Total Bilirubin 0.2 0.6 Aspartate Amino Transf 19 14 (AST/SGOT) Alanine Aminotransferase 40 38 (ALT/SGPT) Alkaline Phosphatase 67 69 Total Protein 7.5 7.3 Albumin 3.9 4.0 Urine Opiates Screen NEG Urine Barbiturates Screen NEG Urine Amphetamines Screen NEG Urine Benzodiazepines Screen NEG Urine Cocaine Screen NEG Urine Cannabinoids Screen NEG Ethyl Alcohol Level LESS THAN 3 Triglycerides Level 122 Cholesterol Level 218 LDL Cholesterol 138 HDL Cholesterol 55.8 Cholesterol/HDL Ratio 3.90 Vitamin B12 Level 214 25-Hydroxy Vitamin D Total 22.8 Thyroid Stimulating Hormone 0.016 3rd Gen Result Diagram: 04/22/17 0747 04/22/17 0747 Assessment and Plan Problem List: (1) Adjustment disorder with mixed disturbance of emotions and conduct ICD Code: F43.25 Status: Acute Assessment and Plan Patient is a 61-year-old male with primary medical history of depression, thyroid cancer, chronic back pain who came into the hospital as a Domingo act after a social work manager at the [facility] sent to patient for psychiatric evaluation. As per record, Domingo act paper states that patient endorses suicidal ideation and plan to use "hunting rifle' that was at his home. He is now admitted to inpatient psychiatry unit for further evaluation. Consulted for medical management for back pain. Adjustment disorder -Managed by psychiatry team - Denies SI/HI Chronic back pain - May take Tylenol or ibuprofen when necessary Thyroid cancer, status post thyroidectomy - Continue levothyroxine dose This note was transcribed by [email or web address] [Harvinder Ivey]. I, Dr. Erasto Choi personally performed the history, physical exam, and medical decision making; and confirmed the accuracy of the information in the transcribed note. Authenticated by Dr. Erasto Choi on 04/22/17 at 1500. Thank you for this consultation. Stable from Hospitalist standpoint. We will sign off. Reconsult as needed. Code Status Full code Discussed Condition With Patient, nursing, Harvinder Lewis Apr 22, 2017 15:02 Erasto Choi MD Apr 22, 2017 23:49
[2017-04-22 16:50] LABS: HEMOGLOBIN A1a 1.2 %; HEMOGLOBIN A1b 1.6 %; HEMOGLOBIN Ao 86.6 %; HEMOGLOBIN LA1C 1.7 %; HEMOGLOBIN P3 3.4 %
[2017-04-23] MEDS ORDERED: LEVOTHYROXINE SODIUM 75 MCG TAB PO SCH (06:00)
[2017-04-23] MEDS ORDERED: LEVOTHYROXINE SODIUM 100 MCG TAB PO SCH (06:00)
== END 2017-04-22 15:00 | disposition home or self-care (01) | DRG 882 ==
LOC: NEDAMB 14:56 → NEDA 17:41 → H260 18:10
PROVIDERS: ADMIT Psychiatry & Neurology Psychiatry; ATTEND Psychiatry & Neurology Psychiatry
DX: F43.25 Adjustment disorder with mixed disturbance of emotions and conduct (principal); R45.851 Suicidal ideations; F32.9 Major depressive disorder, single episode, unspecified; F41.9 Anxiety disorder, unspecified; F84.5 Asperger's syndrome; I10 Essential (primary) hypertension; G89.29 Other chronic pain; M54.9 Dorsalgia, unspecified; Z72.0 Tobacco use; Z85.850 Personal history of malignant neoplasm of thyroid
CPT/HCPCS: 80053; 80061; 80307; 81001; 82306; 82607; 83036; 84443; 85025; 93005; 99285

== ENCOUNTER 2017-04-26 16:22 | Emergency (ER) | payer OTHER ==
[~2017-04-26] VITALS: Ht 185.4 cm; Wt 190.0 kg
[~2017-04-26 16:22] MED LIST changes: -COLY4000S PO; -MIRA33504 PO
[2017-04-26 16:31] VITALS: BP 143/89; PULSE 71; RESP 15; TEMP 98.2; O2SAT 99
[2017-04-26] MEDS ORDERED: ALPR.25 PO (16:38)
[2017-04-26] MEDS ORDERED: LISI10TA3 PO (16:38)
[2017-04-26] MEDS ORDERED: SODIUM CHLOR 0.9% 1000 ML INJ 1,000 ML IV ONE (17:00)
[2017-04-26 17:22] LABS: AUTOMATED NEUTROPHIL # 10.3 TH/MM3 (1.8-7.7); BASOPHIL # 0.3 TH/MM3 (0-0.2); BASOPHIL % 2.2 % (0.0-2.0); EOSINOPHIL % 0.1 % (0.0-4.0); HEMATOCRIT 43.5 % (39.0-51.0); LYMPHOCYTE # 0.7 TH/MM3 (1.0-4.8); MEAN CELL VOLUME 86.1 FL (80.0-100.0); MEAN CORPUSCULAR HEMOGLOBIN 28.8 PG (27.0-34.0); MEAN CORPUSCULAR HGB CONC 33.4 % (32.0-36.0); MONO % 4.7 % (0.0-8.0); PLATELET COUNT 208 TH/MM3 (150-450); RED BLOOD COUNT 5.05 MIL/MM3 (4.50-5.90); RED CELL DISTRIBUTION WIDTH 11.8 % (11.6-17.2); WHITE BLOOD COUNT 11.9 TH/MM3 (4.0-11.0)
[2017-04-26 17:33] LABS: CHLORIDE 112 MEQ/L (98-107); HEMO FLAGS AUTO DIFF; POTASSIUM 3.8 MEQ/L (3.5-5.1); SODIUM (NA) 146 MEQ/L (136-145)
[2017-04-26 17:38] LABS: ANION GAP 10 MEQ/L (5-15); BICARBONATE 24.1 MEQ/L (21.0-32.0); BLOOD UREA NITROGEN 17 MG/DL (7-18)
[2017-04-26 17:41] LABS: ALT (GPT) 27 U/L (12-78); AST (GOT) 11 U/L (15-37); GLOMERULAR FILTRATION RATE 56 ML/MIN (>89)
[2017-04-26 17:42] LABS: TOTAL BILIRUBIN ADULT 0.6 MG/DL (0.2-1.0)
[2017-04-26 17:44] LABS: ALKALINE PHOSPHATASE 61 U/L (45-117)
[2017-04-26 17:55] LABS: SCAN/DIFF AUTO DIFF CONFIRMED
--- NOTE | 2017-04-26 18:20 | PD ---
HPI Chief Complaint: Syncope/Near-Syncope Time Seen by Provider: 16:30 Travel History International Travel<30 days: No Contact w/Intl Traveler<30days: No Traveled to known affect area: No History of Present Illness HPI This is a 61-year-old male who presents to the emergency department having had an episode of dizziness and lightheadedness while he was at [employer] checking out at the [employer]. He says he fell faint and slumped over hitting his chin on the counter. He says he didn't lose consciousness and didn't hit his head. He's had no vomiting. He says his lightheadedness lasted for about 5 minutes and then subsided. He denies any chest pain or trouble breathing. He's never had symptoms like this before. He says he hasn't eaten in 36 hours. PFSH Past Medical History Anxiety: Yes Diabetes: No Diminished Hearing: No Hypertension: Yes Psychiatric: Yes (DEPRESSION/ANXIETY) Seizures: Yes Thyroid Disease: Yes ?: Not Past Surgical History Other Surgery: Yes (THYROIDECTOMY-CANCER 30 YRS AGO) Social History Alcohol Use: No Tobacco Use: No Substance Use: No Allergies-Medications (Allergen,Severity, Reaction): Coded Allergies: No Known Allergies (Unverified , 04/26/17) Reported Meds & Prescriptions Reported Meds & Active Scripts Active Reported Xanax (Alprazolam) 0.25 Mg Tab 0.25 Mg PO Q8H PRN Lisinopril 10 Mg Tab 10 Mg PO DAILY Synthroid (Levothyroxine Sodium) 175 Mcg Tab 175 Mcg PO DAILY Review of Systems Except as stated in HPI: all other systems reviewed are Neg Physical Exam Narrative GENERAL:Well appearing, no acute distress SKIN: Small half centimeter laceration on the chin. HEAD: Atraumatic. Normocephalic. EYES: Pupils equal and round. No injection or drainage. ENT: Moist mucous membranes NECK: Trachea midline. CARDIOVASCULAR: Regular rate and rhythm. No murmur appreciated. RESPIRATORY: Clear to auscultation. Breath sounds equal bilaterally. GASTROINTESTINAL: Abdomen soft, non-tender, nondistended. MUSCULOSKELETAL: No obvious deformities. NEUROLOGICAL: Awake and alert. No obvious cranial nerve deficits. Moving all extremities. PSYCHIATRIC: Appropriate mood and affect; insight and judgment normal. Data Data Last Documented VS Vital Signs Date Time Temp Pulse Resp B/P Pulse Ox O2 Delivery O2 Flow Rate FiO2 04/26/17 16:33 99 Room Air 04/26/17 16:31 98.2 71 15 143/89 Orders Complete Blood Count With Diff (04/26/17 16:49) Comprehensive Metabolic Panel (04/26/17 16:49) ^ Insert Iv (04/26/17 16:49) Troponin I (04/26/17 16:49) Urinalysis - C+S If Indicated (04/26/17 16:49) Electrocardiogram (04/26/17 ) Sodium Chlor 0.9% 1000 Ml Inj (Ns 1000 M (04/26/17 17:00) D-Dimer (04/26/17 17:47) Thyroid Stimulating Hormone (04/26/17 17:05) Labs Laboratory Tests Test 04/26/17 17:05 White Blood Count 11.9 TH/MM3 Red Blood Count 5.05 MIL/MM3 Hemoglobin 14.5 GM/DL Hematocrit 43.5 % Mean Corpuscular Volume 86.1 FL Mean Corpuscular Hemoglobin 28.8 PG Mean Corpuscular Hemoglobin 33.4 % Concent Red Cell Distribution Width 11.8 % Platelet Count 208 TH/MM3 Mean Platelet Volume 10.0 FL Neutrophils (%) (Auto) 87.0 % Lymphocytes (%) (Auto) 6.0 % Monocytes (%) (Auto) 4.7 % Eosinophils (%) (Auto) 0.1 % Basophils (%) (Auto) 2.2 % Neutrophils # (Auto) 10.3 TH/MM3 Lymphocytes # (Auto) 0.7 TH/MM3 Monocytes # (Auto) 0.6 TH/MM3 Eosinophils # (Auto) 0.0 TH/MM3 Basophils # (Auto) 0.3 TH/MM3 CBC Comment AUTO DIFF Differential Comment AUTO DIFF CONFIRMED Sodium Level 146 MEQ/L Potassium Level 3.8 MEQ/L Chloride Level 112 MEQ/L Carbon Dioxide Level 24.1 MEQ/L Anion Gap 10 MEQ/L Blood Urea Nitrogen 17 MG/DL Creatinine 1.30 MG/DL Estimat Glomerular Filtration 56 ML/MIN Rate Random Glucose 97 MG/DL Calcium Level 8.4 MG/DL Total Bilirubin 0.6 MG/DL Aspartate Amino Transf 11 U/L (AST/SGOT) Alanine Aminotransferase 27 U/L (ALT/SGPT) Alkaline Phosphatase 61 U/L Troponin I 0.09 NG/ML Total Protein 6.7 GM/DL Albumin 3.7 GM/DL MDM Medical Decision Making Medical Screen Exam Complete: Yes Emergency Medical Condition: Yes Medical Record Reviewed: Yes (patient was just admitted psychiatrically on April 21 in the setting of some suicidal ideation) Interpretation(s) EKG: Normal sinus rhythm with no ST changes White blood cell count is 11.9 87% neutrophils Hypernatremic Troponin is 0.09 TSH is 0.022 Differential Diagnosis Arrhythmia, myocardial infarction, vasovagal syncope, orthostatic hypotension, dehydration Narrative Course This is a 61-year-old male who presents to the emergency department having had lightheadedness and dizziness at [facility] ([facility]) causing him to slump forward and hit his chin. He says he didn't truly pass out. He was placed on a monitor and an IV was established. EKG demonstrates normal sinus rhythm with no ischemic changes. Labs were obtained which demonstrated a mild leukocytosis. Chemistry is concerning for an elevated troponin of 0.09. Given this I urged the patient to stay in the hospital overnight to have serial cardiac enzymes evaluated as he may have had an arrhythmia, pulmonary embolism or myocardial infarction. Patient is very adamant that he wants to go home. He says he feels fine and he can't afford to stay. He is able to understand and answer questions appropriately and articulate his reasoning. I don't think I can hold him against his will. I did express the concerning nature of his blood work and he expressed understanding. Patient will be discharged AGAINST MEDICAL ADVICE. Diagnosis Primary Impression: Syncope Qualified Code: R55 - Syncope, unspecified syncope type Patient Instructions: General Instructions Additional Instructions: If you develop severe chest pain, shortness of breath, sweating, lightheadedness , dizziness or difficulty breathing return to the emergency department immediately. You have an abnormal blood test concerning for heart disease, heart attack, blood clot or arrhythmia. If you develop new symptoms or change your mind regarding staying in the hospital please return to the emergency department as soon as possible. Med/Other Pt SpecificInfo: No Change to Meds Disposition: 01 DISCHARGE HOME Condition: Stable Ana María Marie MD Apr 26, 2017 18:20
[2017-04-26 18:40] VITALS: BP 132/68
--- NOTE | 2017-04-28 08:34 | EKG ---
Date Performed: 04/26/2017 Time Performed: 17:02:34 PTAGE: 61 years EKG: Sinus rhythm NORMAL ECG PREVIOUS TRACING : 04/22/2017 10.03 DOCTOR: Krish Lr Interpretating Date/Time 04/28/2017 08:33:28
== END 2017-04-26 18:43 | disposition left against medical advice (07) ==
LOC: PHED 16:22
DX: R55 Syncope and collapse (principal); I10 Essential (primary) hypertension; E07.9 Disorder of thyroid, unspecified
CPT/HCPCS: 80053; 84443; 84484; 85025; 85379; 93005; 99284; J7030

== ENCOUNTER 2017-08-07 15:47 | Emergency (ER) | payer OTHER ==
[~2017-08-07 15:47] MED LIST changes: +ALPR.25 PO; +LISI10TA3 PO
[2017-08-07 15:55] VITALS: BP 141/83; PULSE 94; RESP 16; TEMP 100.1; O2SAT 100
--- NOTE | 2017-08-07 16:53 | PD ---
HPI . Head injury one year and 6 months ago Chief Complaint: Head Injury Time Seen by Provider: 16:22 Travel History International Travel<30 days: No Contact w/Intl Traveler<30days: No Traveled to known affect area: No History of Present Illness HPI 61-year-old male patient presents emergency department for evaluation of head injury. Patient states he was at work one year and 6 months ago and hit his head on a rack. Patient has had multiple CAT scans subsequent to the initial trauma that have all been normal. Patient states food doesn't taste the same as it used to and he gets headaches sometimes and he has had 2 syncopal episodes subsequent to the initial trauma. Patient states he came in today because he is scared that he will have another syncopal episode at some point due to the trauma. Patient denies fever, chills, malaise, any other injury to the head, chest pain, shortness breath, abdominal pain, nausea, vomiting or diarrhea. Patient does not have a headache at this time. Patient did not have a syncopal episode today but is concerned he might have one. History Past Medical Histgory Tetanus Vaccination: Unknown Social History Alcohol Use: No (quit) Tobacco Use: No Allergies-Medications (Allergen,Severity, Reaction): Coded Allergies: No Known Allergies (Unverified , 08/07/17) Reported Meds & Prescriptions Reported Meds & Active Scripts Active Reported Xanax (Alprazolam) 0.25 Mg Tab 0.25 Mg PO Q8H PRN Lisinopril 10 Mg Tab 10 Mg PO DAILY Synthroid (Levothyroxine Sodium) 175 Mcg Tab 150 Mcg PO DAILY Review of Systems Except as stated in HPI: all other systems reviewed are Neg Physical Exam Narrative GENERAL: Well-nourished, well-developed 61-year-old male patient in no acute distress. SKIN: Focused skin assessment warm/dry. HEAD: Normocephalic. Atraumatic EYES: No scleral icterus. No injection or drainage. NECK: Supple, trachea midline. No JVD or lymphadenopathy. CARDIOVASCULAR: Regular rate and rhythm without murmurs, gallops, or rubs. RESPIRATORY: Breath sounds equal bilaterally. No accessory muscle use. GASTROINTESTINAL: Abdomen soft, non-tender, nondistended. MUSCULOSKELETAL: No cyanosis, or edema. BACK: Nontender without obvious deformity. No CVA tenderness. Data Data Last Documented VS Vital Signs Date Time Temp Pulse Resp B/P (MAP) Pulse Ox O2 Delivery O2 Flow Rate FiO2 08/07/17 15:55 100.1 94 16 141/83 (102) 100 MDM Medical Screen Exam Complete: Yes Emergency Medical Condition: No Differential Diagnosis Differential diagnoses include but not limited to history of concussion, anxiety , psychosomatic disorder Narrative Course A medical screening exam was performed: At the time of evaluation the presenting medical condition was determined not to be of an emergent nature. The patient was given the option of receiving additional care, but declined. Patient was given options for additional community resources from which to obtain care. The Patient Has Been advised to seek medical attention for their presenting complaint. The patient has been advised to return to the ER at any time if an emergent condition develops. Primary Impression: Encounter for medical screening examination Condition: Stable Jaky Ashby Aug 07, 2017 16:53
== END 2017-08-07 17:10 | disposition home or self-care (01) ==
LOC: PHED 15:47 → PHEFT 17:10
DX: S09.90XD Unspecified injury of head, subsequent encounter (principal); X58.XXXD Exposure to other specified factors, subsequent encounter; Z79.899 Other long term (current) drug therapy
CPT/HCPCS: 99282